=== PATIENT | male | born 1955 | race Caucasian/White ===

== ENCOUNTER 2021-02-28 21:25 | Emergency (ER) | payer OTHER ==
[~2021-02-28] VITALS: Ht 177.8 cm; Wt 72.6 kg
[2021-02-28 22:48] LABS: URINE BILIRUBIN NEGATIVE (Negative); URINE BLOOD 3+ (Negative); URINE CLARITY CLEAR; URINE COLOR YELLOW; URINE GLUCOSE-RANDOM* NEGATIVE (Negative); URINE KETONES TRACE (Negative); URINE LEUKOCYTES-REFLEX NEGATIVE (Negative); URINE NITRITE-REFLEX NEGATIVE (Negative); URINE PROTEIN (DIPSTICK) 2+ (Negative); URINE SPECIFIC GRAVITY >= 1.030 (1.005-1.035); URINE UROBILINOGEN 0.2 E.U./dl (0.2-1.0)
[2021-02-28 23:00] VITALS: BP 120/73
[2021-02-28 23:18] LABS: SQUAMOUS None Seen /LPF (0-3)
[2021-02-28 23:19] LABS: BACTERIA-REFLEX None Seen /HPF (None Seen); CALCIUM OXALATE 4-10 Moderate /LPF (None Seen); CASTS None Seen /LPF (None Seen); MUCUS 0-3 Light strn/LPF (None Seen); URINE WBC-REFLEX 0-5 Rare /HPF (0-5)
== END 2021-02-28 23:00 | disposition home or self-care (01) ==
LOC: ER 21:25
PROVIDERS: Emergency Medicine
DX: T83.018A Breakdown (mechanical) of other urinary catheter, initial encounter (principal)